=== PATIENT | male | born 1980 | race Two or more races ===

== ENCOUNTER → 2016-08-01 | Outpatient (REF) | payer OTHER ==
[2016-08-01 18:47] LABS: PERCENT SATURATION 31.1 % (19.7-37.4)
== END | disposition home or self-care (01) ==
LOC: M LAB REF 16:45
PROVIDERS: ATTEND Family Medicine
DX: R78.71 Abnormal lead level in blood (principal); R78.79 Finding of abnormal level of heavy metals in blood

== ENCOUNTER → 2017-03-06 | Outpatient (REF) | payer OTHER | LOC: M LAB REF 12:38 | PROVIDERS: ATTEND Nurse Practitioner Family | DX: L72.3 Sebaceous cyst (principal) ==

== ENCOUNTER 2025-01-23 20:05 | Emergency (ER) | payer OTHER ==
[~2025-01-23] VITALS: Ht 177.8 cm; Wt 76.3 kg
[2025-01-23 20:08] VITALS: BP 139/83; TEMP 99.3; O2SAT 97
[2025-01-23] MEDS ORDERED: CEPH500C PO (20:14)
== END 2025-01-23 22:55 | disposition left against medical advice (07) ==
LOC: M ED 20:05
DX: Z53.21 Procedure and treatment not carried out due to patient leaving prior to being seen by health care provider (principal)

== ENCOUNTER 2025-01-24 05:54 | Inpatient (IN) | payer BC, OTHER ==
[~2025-01-24] VITALS: Ht 177.8 cm; Wt 76.0 kg
[2025-01-24] VITALS (8 sets, daily range): BP systolic 108–132; BP diastolic 68–78; TEMP 97–97.2; O2SAT 93–99
[~2025-01-24 05:54] MED LIST: CEPH500C PO
[2025-01-24 06:36] LABS: BASO # 0.0 10^3/uL (0.0-0.2); BASO % 0.2 % (0.0-1.0); EOS # 0.0 10^3/uL (0.0-0.5); EOS % 0.0 % (0.0-3.0); LYMPH # 0.9 10^3/uL (1.5-5.0); LYMPH % 4.3 % (24.0-44.0); MONO # 0.9 10^3/uL (0.0-0.8); MONO % 4.3 % (2.0-8.0); NEUTROPHILS # 18.8 10^3/uL (1.5-8.5); NEUTROPHILS % 90.5 % (36.0-66.0); PLATELET COUNT, AUTOMATED 248 10^3/uL (150-450)
[2025-01-24 07:02] LABS: CK-MB VALUE MASS < 1.0 NG/ML (<3.6)
[2025-01-24 07:05] LABS: ALT/SGPT 13 U/L (7.0-40); AST/SGOT 20 U/L (<34); CALCIUM LEVEL 9.0 MG/DL (8.5-10.1); CARBON DIOXIDE LEVEL 24 MMOL/L (20-31); CHLORIDE LEVEL 100 MMOL/L (98-107); CREATININE FOR GFR 1.19 MG/DL (0.70-1.30); GLOMERULAR FILTRATION RATE 76.3 (>60); POTASSIUM SERUM 3.8 MMOL/L (3.5-5.1); SODIUM LEVEL 139 MMOL/L (136-145)
[2025-01-24 07:09] LABS: CPK CREATINE PHOSPHOKINASE 49 U/L (46-171)
[2025-01-24 07:55] LABS: CK-MB VALUE MASS < 1.0 NG/ML (<3.6)
[2025-01-24 07:56] LABS: CPK CREATINE PHOSPHOKINASE 45 U/L (46-171)
[2025-01-24] MEDS ORDERED: ISOVUE-370 76% 100 ML VIAL As Ordered ONE (07:58)
[2025-01-24] MEDS: PIPERACILLIN/TAZOBACTAM SOD 4.5 GM in DEXTROSE 5% (D5W) ADV/MINI-BAG 50 ML IV ONE (08:37)
[2025-01-24] MEDS: NS 0.9% IV ONE (08:37)
[2025-01-24] MEDS: [UNRECOGNIZED DRUG - OTHER] IV ONE (08:37)
[2025-01-24] MEDS: MORPHINE 4 MG/ML 1 ML VIAL IV PRN (08:37)
[2025-01-24] MEDS: ONDANSETRON 4MG 2ML VIAL IV ONE (08:37)
[2025-01-24] MEDS: ACETAMINOPHEN 500 MG TAB PO ONE (08:37)
[2025-01-24] MEDS ORDERED: ONDANSETRON 4MG 2ML VIAL IV PRN (08:55)
[2025-01-24] MEDS ORDERED: MORPHINE 4 MG/ML 1 ML VIAL IV PRN (08:55)
[2025-01-24] MEDS ORDERED: HOME MED LIST COMPLETE! XX SCH (09:05)
[2025-01-24] MEDS: LR 1,000 ML IV SCH (10:25)
[2025-01-24] MEDS ORDERED: ACETAMINOPHEN 1000MG/100ML IV BAG As Ordered ONE (13:34)
[2025-01-24] MEDS ORDERED: SUCCINYLCHOLINE 100MG/5ML SYRINGE As Ordered ONE (13:34)
[2025-01-24] MEDS ORDERED: dexAMETHasone 4 MG/ML 1 ML VIAL As Ordered ONE (13:34)
[2025-01-24] MEDS ORDERED: MIDAZOLAM INJ 2 MG/2 ML VIAL As Ordered ONE (13:34)
[2025-01-24] MEDS ORDERED: LIDOCAINE 2% 100 MG/5 ML SDV (FOR ANES.) As Ordered ONE (13:34)
[2025-01-24] MEDS ORDERED: ONDANSETRON 4MG 2ML VIAL As Ordered ONE (13:34)
[2025-01-24] MEDS ORDERED: ROCURONIUM BROMIDE 50MG/5ML VIAL As Ordered ONE (13:34)
[2025-01-24] MEDS ORDERED: KETOROLAC 30 MG/ML 1 ML VIAL As Ordered ONE (13:39)
[2025-01-24] MEDS ORDERED: SUGAMMADEX SODIUM 500 MG/5 ML VIAL As Ordered ONE (13:43)
[2025-01-24] MEDS: ZOSYN 3.375GM VIAL As Ordered ONE (14:18)
[2025-01-24] MEDS ORDERED: HYDROMORPHONE HCL 0.5 MG/0.5 ML SYRINGE IV PRN (14:50)
[2025-01-24] MEDS ORDERED: HYDROmorphone HCL 2 MG/ML 1 ML VIAL As Ordered ONE (15:05)
[2025-01-24] MEDS: LIDOCAINE 1% SDV 30 ML VIAL As Ordered ONE (15:15)
[2025-01-24] MEDS: PIPERACILLIN/TAZOBACTAM SOD 3.375 GM in DEXTROSE 5% (D5W) ADV/MINI-BAG 50 ML IV SCH (15:41)
[2025-01-24] MEDS: KETOROLAC 30 MG/ML 1 ML VIAL IV SCH (20:21)
[2025-01-25] VITALS (8 sets, daily range): BP systolic 107–135; BP diastolic 66–80; TEMP 97.3–100.9; O2SAT 88–99
[2025-01-25 07:07] LABS: BASO # 0.0 10^3/uL (0.0-0.2); BASO % 0.2 % (0.0-1.0); EOS # 0.0 10^3/uL (0.0-0.5); EOS % 0.2 % (0.0-3.0); LYMPH # 1.0 10^3/uL (1.5-5.0); LYMPH % 9.2 % (24.0-44.0); MONO # 0.6 10^3/uL (0.0-0.8); MONO % 5.2 % (2.0-8.0); NEUTROPHILS # 9.3 10^3/uL (1.5-8.5); NEUTROPHILS % 84.6 % (36.0-66.0); PLATELET COUNT, AUTOMATED 194 10^3/uL (150-450)
[2025-01-25 07:43] LABS: C REACTIVE PROTEIN QUANTITATIV 27.27 MG/DL (<1.0); CALCIUM LEVEL 7.7 MG/DL (8.5-10.1); CARBON DIOXIDE LEVEL 28.0 MMOL/L (20-31); CHLORIDE LEVEL 103.0 MMOL/L (98-107); CREATININE FOR GFR 1.24 MG/DL (0.70-1.30); GLOMERULAR FILTRATION RATE 72.6 (>60); POTASSIUM SERUM 3.6 MMOL/L (3.5-5.1); SODIUM LEVEL 140.0 MMOL/L (136-145)
[2025-01-25] MEDS: PERCOCET 5MG/325MG TAB PO PRN (11:50)
[2025-01-25] MEDS: ACETAMINOPHEN 325 MG TAB PO PRN (15:21)
[2025-01-26] VITALS (8 sets, daily range): BP systolic 126–144; BP diastolic 78–90; TEMP 98.6–101.2; O2SAT 89–98
[2025-01-26 06:22] LABS: BASO # 0.1 10^3/uL (0.0-0.2); BASO % 0.6 % (0.0-1.0); EOS # 0.1 10^3/uL (0.0-0.5); EOS % 1.3 % (0.0-3.0); LYMPH # 1.2 10^3/uL (1.5-5.0); LYMPH % 14.8 % (24.0-44.0); MONO # 0.6 10^3/uL (0.0-0.8); MONO % 7.0 % (2.0-8.0); NEUTROPHILS # 5.9 10^3/uL (1.5-8.5); NEUTROPHILS % 75.9 % (36.0-66.0); PLATELET COUNT, AUTOMATED 183 10^3/uL (150-450)
[2025-01-26 06:36] LABS: C REACTIVE PROTEIN QUANTITATIV 24.86 MG/DL (<1.0)
[2025-01-26 18:46] LABS: HIV 1&2 SCREEN NEGATIVE (NEGATIVE)
[2025-01-27 03:54] VITALS: BP 144/89; TEMP 99.5; O2SAT 96
[2025-01-27 08:40] LABS: BASO # 0.0 10^3/uL (0.0-0.2); BASO % 0.5 % (0.0-1.0); EOS # 0.2 10^3/uL (0.0-0.5); EOS % 2.2 % (0.0-3.0); LYMPH # 1.6 10^3/uL (1.5-5.0); LYMPH % 18.4 % (24.0-44.0); MONO # 0.7 10^3/uL (0.0-0.8); MONO % 8.0 % (2.0-8.0); NEUTROPHILS # 6.1 10^3/uL (1.5-8.5); NEUTROPHILS % 70.2 % (36.0-66.0); PLATELET COUNT, AUTOMATED 229 10^3/uL (150-450)
[2025-01-27 08:59] LABS: CALCIUM LEVEL 8.2 MG/DL (8.5-10.1); CARBON DIOXIDE LEVEL 25.0 MMOL/L (20-31); CHLORIDE LEVEL 107.0 MMOL/L (98-107); CREATININE FOR GFR 1.13 MG/DL (0.70-1.30); GLOMERULAR FILTRATION RATE 81.2 (>60); POTASSIUM SERUM 3.8 MMOL/L (3.5-5.1); SODIUM LEVEL 142.0 MMOL/L (136-145)
[2025-01-27 09:15] VITALS: BP 145/89; TEMP 99.2; O2SAT 95
[2025-01-27 09:15] LABS: C REACTIVE PROTEIN QUANTITATIV 19.82 MG/DL (<1.0)
[2025-01-27 12:00] VITALS: BP 145/89; TEMP 99; O2SAT 96
[2025-01-27 16:00] VITALS: BP 144/89; TEMP 98.8; O2SAT 95
[2025-01-27 20:26] VITALS: BP 147/90; TEMP 99.2; O2SAT 95
[2025-01-27 21:00] VITALS: BP 147/90; TEMP 99.2
[2025-01-28 00:16] VITALS: BP 132/88; TEMP 97.5; O2SAT 95
[2025-01-28 04:00] VITALS: BP 133/88; TEMP 97.5; O2SAT 95
[2025-01-28 08:00] VITALS: BP 151/95; TEMP 97.5; O2SAT 95
[2025-01-28] MEDS: MIRALAX *UNIT DOSE* 17 GM PACKET PO SCH (10:53)
[2025-01-28 12:00] VITALS: BP 157/96; TEMP 97.8; O2SAT 96
[2025-01-28 12:28] VITALS: BP 138/90
[2025-01-28] MEDS ORDERED: LEVO1TAB40 PO (12:43)
== END 2025-01-28 14:09 | disposition home or self-care (01) | DRG 710 ==
LOC: M ED 05:54 → M ED INP 15:28 → M MSPAV 16:10 → M ED 16:21
PROVIDERS: ADMIT Surgery; ATTEND Surgery
PROC: 0DTJ4ZZ Resection of Appendix, Percutaneous Endoscopic Approach (ICD-10-PCS; principal; 2025-01-24 15:00)
DX: A41.51 Sepsis due to Escherichia coli [E. coli] (principal); K35.33 Acute appendicitis with perforation, localized peritonitis, and gangrene, with abscess; B96.20 Unspecified Escherichia coli [E. coli] as the cause of diseases classified elsewhere; B96.5 Pseudomonas (aeruginosa) (mallei) (pseudomallei) as the cause of diseases classified elsewhere

== ENCOUNTER 2025-02-04 16:45 | Inpatient (IN) | payer BC ==
[~2025-02-04] VITALS: Ht 177.8 cm; Wt 73.6 kg
[~2025-02-04 16:45] MED LIST changes: -ACET-683 PO
[2025-02-04] MEDS ORDERED: ACET-683 PO (16:53)
[2025-02-04] MEDS: NS (Normal Saline) 0.9% 1,000 ML IV ONE (17:24)
[2025-02-04] MEDS ORDERED: MORPHINE 4 MG/ML 1 ML VIAL IV PRN ×2 (17:25→22:15)
[2025-02-04 17:27] LABS: BASO # 0.1 10^3/uL (0.0-0.2); BASO % 0.3 % (0.0-1.0); EOS # 0.0 10^3/uL (0.0-0.5); EOS % 0.1 % (0.0-3.0); LYMPH # 1.8 10^3/uL (1.5-5.0); LYMPH % 7.8 % (24.0-44.0); MONO # 1.2 10^3/uL (0.0-0.8); MONO % 5.0 % (2.0-8.0); NEUTROPHILS # 20.2 10^3/uL (1.5-8.5); NEUTROPHILS % 86.1 % (36.0-66.0); PLATELET COUNT, AUTOMATED 392 10^3/uL (150-450)
[2025-02-04] MEDS: IBUPROFEN 600 MG TAB PO ONE (17:31)
[2025-02-04] MEDS: PIPERACILLIN/TAZOBACTAM SOD 4.5 GM in DEXTROSE 5% (D5W) ADV/MINI-BAG 50 ML IV ONE (17:54)
[2025-02-04 18:02] LABS: KETONE, URINE AUTO RFX TRACE mg/dL (NEGATIVE); LEUKOCYTE ESTERASE UR AUTO RFX NEGATIVE (NEGATIVE); MUCUS, URINE RFX SMALL (NEGATIVE); NITRITE, URINE AUTO RFX NEGATIVE (NEGATIVE); RBC, URINE AUTO RFX 0 /HPF (0-3); SQUAM EPITHELIAL CELL UR AURFX 0 /HPF (0-6); WBC, URINE AUTO RFX 2 /HPF (0-3)
[2025-02-04] MEDS: GASTROGRAFIN SOLUTION 30ML PO SCH (18:05)
[2025-02-04 18:11] LABS: ALT/SGPT 30.0 U/L (7.0-40); AST/SGOT 22.0 U/L (<34); CALCIUM LEVEL 9.2 MG/DL (8.5-10.1); CARBON DIOXIDE LEVEL 26.0 MMOL/L (20-31); CHLORIDE LEVEL 98.0 MMOL/L (98-107); CREATININE FOR GFR 1.28 MG/DL (0.70-1.30); GLOMERULAR FILTRATION RATE 69.9 (>60); POTASSIUM SERUM 3.9 MMOL/L (3.5-5.1); SODIUM LEVEL 136.0 MMOL/L (136-145)
[2025-02-04] MEDS ORDERED: HOME MED LIST COMPLETE! XX SCH (18:40)
[2025-02-04] MEDS ORDERED: ISOVUE-370 76% 100 ML VIAL As Ordered ONE (19:02)
[2025-02-04] MEDS: NS (Normal Saline) 0.9% 1,000 ML IV SCH (20:34)
[2025-02-04] MEDS: LR 1,000 ML IV SCH (21:54)
[2025-02-04 23:45] VITALS: BP 108/70; TEMP 97.7
[2025-02-05] VITALS (17 sets, daily range): BP systolic 104–145; BP diastolic 65–92; TEMP 97.1–102.9; O2SAT 94–97
[2025-02-05] MEDS: PIPERACILLIN/TAZOBACTAM SOD 4.5 GM in DEXTROSE 5% (D5W) ADV/MINI-BAG 50 ML IV SCH ×2 (01:23→09:54)
[2025-02-05 05:30] LABS: PLATELET COUNT, AUTOMATED 298 10^3/uL (150-450)
[2025-02-05] MEDS: ACETAMINOPHEN 500 MG TAB PO PRN (05:36)
[2025-02-05 06:06] LABS: ALT/SGPT 22.0 U/L (7.0-40); AST/SGOT 18.0 U/L (<34); CALCIUM LEVEL 8.5 MG/DL (8.5-10.1); CARBON DIOXIDE LEVEL 26.0 MMOL/L (20-31); CHLORIDE LEVEL 102.0 MMOL/L (98-107); CREATININE FOR GFR 1.12 MG/DL (0.70-1.30); GLOMERULAR FILTRATION RATE 82.1 (>60); POTASSIUM SERUM 4.2 MMOL/L (3.5-5.1); SODIUM LEVEL 141.0 MMOL/L (136-145)
[2025-02-05] MEDS: ISOVUE-300 61% 100 ML VIAL IV SCH (08:00)
[2025-02-05] MEDS ORDERED: MIDAZOLAM INJ 2 MG/2 ML VIAL IV PRN (08:00)
[2025-02-05] MEDS: SODIUM CHLORIDE 0.9% 1000 ML XX SCH (08:00)
[2025-02-05] MEDS ORDERED: NS (Normal Saline) 0.9% 1,000 ML IV SCH (08:00)
[2025-02-05] MEDS ORDERED: ONDANSETRON 4MG 2ML VIAL IV PRN (09:20)
[2025-02-05] MEDS: LIDOCAINE 1% MDV 20 ML VIAL SC SCH (09:27)
[2025-02-05] MEDS: MORPHINE 2 MG/ML 1 ML VIAL IV PRN (09:53)
[2025-02-05] MEDS: KETOROLAC 30 MG/ML 1 ML VIAL IV ONE ×2 (10:34→16:58)
[2025-02-05] MEDS: ACETAMINOPHEN 325 MG TAB PO PRN (14:07)
[2025-02-06] VITALS (7 sets, daily range): BP systolic 108–121; BP diastolic 67–77; TEMP 98.7–101.9; O2SAT 93–96
[2025-02-06 06:27] LABS: PLATELET COUNT, AUTOMATED 256 10^3/uL (150-450)
[2025-02-06 07:06] LABS: ALT/SGPT 22.0 U/L (7.0-40); AST/SGOT 21.0 U/L (<34); CALCIUM LEVEL 7.8 MG/DL (8.5-10.1); CARBON DIOXIDE LEVEL 27.0 MMOL/L (20-31); CHLORIDE LEVEL 105.0 MMOL/L (98-107); CREATININE FOR GFR 1.07 MG/DL (0.70-1.30); GLOMERULAR FILTRATION RATE 86.7 (>60); POTASSIUM SERUM 4.1 MMOL/L (3.5-5.1); SODIUM LEVEL 141.0 MMOL/L (136-145)
[2025-02-06] MEDS: ENOXAPARIN 40 MG/0.4 ML SYRINGE (J1650 PER 10MG) SC SCH (16:34)
[2025-02-07] VITALS: BP 117/79; TEMP 98.9; O2SAT 96
[2025-02-07 04:32] VITALS: BP 114/78; TEMP 98.4; O2SAT 96
[2025-02-07 06:32] LABS: PLATELET COUNT, AUTOMATED 295 10^3/uL (150-450)
[2025-02-07 07:05] LABS: ALT/SGPT 25.0 U/L (7.0-40); AST/SGOT 21.0 U/L (<34); CALCIUM LEVEL 8.4 MG/DL (8.5-10.1); CARBON DIOXIDE LEVEL 27.0 MMOL/L (20-31); CHLORIDE LEVEL 105.0 MMOL/L (98-107); CREATININE FOR GFR 1.1 MG/DL (0.70-1.30); GLOMERULAR FILTRATION RATE 83.8 (>60); POTASSIUM SERUM 4.1 MMOL/L (3.5-5.1); SODIUM LEVEL 143.0 MMOL/L (136-145)
[2025-02-07 08:00] VITALS: BP 115/78; TEMP 98.4; O2SAT 96
[2025-02-07 12:00] VITALS: BP 117/79; TEMP 98.2; O2SAT 95
[2025-02-07 16:00] VITALS: BP 119/78; TEMP 98.1; O2SAT 95
[2025-02-07 19:50] VITALS: BP 127/82; TEMP 98; O2SAT 96
[2025-02-08 00:15] VITALS: BP 105/68; TEMP 98.5; O2SAT 94
[2025-02-08 04:15] VITALS: BP 117/74; TEMP 98; O2SAT 95
[2025-02-08 07:30] LABS: PLATELET COUNT, AUTOMATED 348 10^3/uL (150-450)
[2025-02-08 08:06] LABS: ALT/SGPT 31.0 U/L (7.0-40); AST/SGOT 29.0 U/L (<34); C REACTIVE PROTEIN QUANTITATIV 10.26 MG/DL (<1.0); CALCIUM LEVEL 8.7 MG/DL (8.5-10.1); CARBON DIOXIDE LEVEL 28.0 MMOL/L (20-31); CHLORIDE LEVEL 105.0 MMOL/L (98-107); CREATININE FOR GFR 1.12 MG/DL (0.70-1.30); GLOMERULAR FILTRATION RATE 82.1 (>60); POTASSIUM SERUM 4.3 MMOL/L (3.5-5.1); SODIUM LEVEL 143.0 MMOL/L (136-145)
[2025-02-08 08:11] VITALS: BP 115/78; TEMP 97.9; O2SAT 95
[2025-02-08 12:03] VITALS: BP 114/78; TEMP 97.5; O2SAT 95
[2025-02-08 16:27] VITALS: BP 113/78; TEMP 98.7; O2SAT 96
[2025-02-08 19:45] VITALS: BP 118/80; TEMP 98.5; O2SAT 96
[2025-02-09] VITALS (7 sets, daily range): BP systolic 100–120; BP diastolic 61–81; TEMP 97–98.1; O2SAT 94–97
[2025-02-09 06:26] LABS: PLATELET COUNT, AUTOMATED 341 10^3/uL (150-450)
[2025-02-09 06:42] LABS: ALT/SGPT 37.0 U/L (7.0-40); AST/SGOT 34.0 U/L (<34); CALCIUM LEVEL 8.8 MG/DL (8.5-10.1); CARBON DIOXIDE LEVEL 26.0 MMOL/L (20-31); CHLORIDE LEVEL 106.0 MMOL/L (98-107); CREATININE FOR GFR 1.11 MG/DL (0.70-1.30); GLOMERULAR FILTRATION RATE 82.9 (>60); POTASSIUM SERUM 4.2 MMOL/L (3.5-5.1); SODIUM LEVEL 144.0 MMOL/L (136-145)
[2025-02-09 09:31] LABS: C REACTIVE PROTEIN QUANTITATIV 5.66 MG/DL (<1.0)
[2025-02-09] MEDS: cefTRIAXone SOD 2 GM in DEXTROSE 5% (D5W) ADV/MINI-BAG 50 ML IV SCH (15:49)
[2025-02-10 00:42] VITALS: BP 118/73; TEMP 96.9; O2SAT 97
[2025-02-10 04:32] VITALS: BP 116/73; TEMP 96.9; O2SAT 97
[2025-02-10 06:41] LABS: PLATELET COUNT, AUTOMATED 386 10^3/uL (150-450)
[2025-02-10 07:15] LABS: C REACTIVE PROTEIN QUANTITATIV 3.3 MG/DL (<1.0)
[2025-02-10 07:16] LABS: ALT/SGPT 43.0 U/L (7.0-40); AST/SGOT 37.0 U/L (<34); CALCIUM LEVEL 9.0 MG/DL (8.5-10.1); CARBON DIOXIDE LEVEL 27.0 MMOL/L (20-31); CHLORIDE LEVEL 105.0 MMOL/L (98-107); CREATININE FOR GFR 1.06 MG/DL (0.70-1.30); GLOMERULAR FILTRATION RATE 87.7 (>60); POTASSIUM SERUM 4.6 MMOL/L (3.5-5.1); SODIUM LEVEL 142.0 MMOL/L (136-145)
[2025-02-10 08:00] VITALS: BP 120/77; TEMP 97.6; O2SAT 97
[2025-02-10] MEDS ORDERED: CEFD1CAP9 PO (10:31)
== END 2025-02-10 11:38 | disposition home or self-care (01) | DRG 721 ==
LOC: M ED 16:45 → M ED INP 22:13 → M MSPAV 23:39
PROVIDERS: ADMIT Student in an Organized Health Care Education/Training Program; ATTEND Internal Medicine
PROC: 0W9G30Z Drainage of Peritoneal Cavity with Drainage Device, Percutaneous Approach (ICD-10-PCS; principal; 2025-02-05 08:08)
DX: T81.43XA Infection following a procedure, organ and space surgical site, initial encounter (principal); K65.1 Peritoneal abscess; A41.9 Sepsis, unspecified organism; N18.2 Chronic kidney disease, stage 2 (mild); Z90.49 Acquired absence of other specified parts of digestive tract; Y83.6 Removal of other organ (partial) (total) as the cause of abnormal reaction of the patient, or of later complication, without mention of misadventure at the time of the procedure; B96.20 Unspecified Escherichia coli [E. coli] as the cause of diseases classified elsewhere; B95.4 Other streptococcus as the cause of diseases classified elsewhere

== ENCOUNTER → 2025-02-04 | Outpatient (CLI) | payer BC ==
[~2025-02-04] MED LIST changes: +ACET-683 PO; +LEVO1TAB40 PO
[2025-02-04 15:49] LABS: BASO # 0.1 10^3/uL (0.0-0.2); BASO % 0.2 % (0.0-1.0); EOS # 0.0 10^3/uL (0.0-0.5); EOS % 0.2 % (0.0-3.0); LYMPH # 1.7 10^3/uL (1.5-5.0); LYMPH % 8.3 % (24.0-44.0); MONO # 1.1 10^3/uL (0.0-0.8); MONO % 5.4 % (2.0-8.0); NEUTROPHILS # 17.9 10^3/uL (1.5-8.5); NEUTROPHILS % 85.1 % (36.0-66.0); PLATELET COUNT, AUTOMATED 376 10^3/uL (150-450)
[2025-02-04 16:05] LABS: CALCIUM LEVEL 9.1 MG/DL (8.5-10.1); CARBON DIOXIDE LEVEL 28.0 MMOL/L (20-31); CHLORIDE LEVEL 98.0 MMOL/L (98-107); CREATININE FOR GFR 1.32 MG/DL (0.70-1.30); GLOMERULAR FILTRATION RATE 67.4 (>60); POTASSIUM SERUM 4.7 MMOL/L (3.5-5.1); SODIUM LEVEL 137.0 MMOL/L (136-145)
[2025-02-04 16:19] LABS: C REACTIVE PROTEIN QUANTITATIV 18.53 MG/DL (<1.0)
== END ==
LOC: M LAB 15:11
PROVIDERS: ATTEND Surgery
DX: K35.201 Acute appendicitis with generalized peritonitis, with perforation, without abscess (principal)

== ENCOUNTER → 2025-02-16 | Outpatient (REF) | payer BC ==
[~2025-02-16] MED LIST changes: +ACET-683 PO; +CEFD1CAP9 PO
== END ==
LOC: M LAB REF 17:49
PROVIDERS: ATTEND Family Medicine
DX: K35.32 Acute appendicitis with perforation, localized peritonitis, and gangrene, without abscess (principal)

== ENCOUNTER → 2025-02-19 | Outpatient (CLI) | payer BC ==
[~2025-02-19] MED LIST changes: +ISOVUE-300 61% 100 ML VIAL As Ordered ONE; +LIDOCAINE 1% MDV 20 ML VIAL SC STA
[2025-02-19 14:15] VITALS: BP 133/76; TEMP 98.2; O2SAT 98
== END ==
LOC: M IRPRO 13:59
PROVIDERS: ATTEND Radiology Diagnostic Radiology
DX: K65.1 Peritoneal abscess (principal)
CPT/HCPCS: 49424; 76080; Q9967